=== PATIENT | female | born 2000 | race Caucasian/White ===

== ENCOUNTER 2022-08-14 09:29 | Emergency (ER) | payer OTHER ==
[~2022-08-14] VITALS: Ht 170.2 cm; Wt 65.8 kg
[2022-08-14] MEDS ORDERED: AUGMENTIN XR 11 EACH PO (13:01)
== END 2022-08-14 13:17 | disposition home or self-care (01) ==
LOC: EMR PED 09:29 → ER 09:29 → EMR PED 09:55
DX: G43.809 Other migraine, not intractable, without status migrainosus (principal); J01.90 Acute sinusitis, unspecified